=== PATIENT | male | born 1965 | race Caucasian/White ===

== ENCOUNTER → 2021-09-12 | Outpatient (CLI) | payer BC ==
--- NOTE | 2021-09-12 12:58 | Diagnostic Imaging Report ---
Indication: Chronic back pain. Time of Exam: 9:51 AM Frontal and lateral views of lumbar spine were obtained. Curvature and alignment of lumbar spine is normal. Vertebral body heights are well maintained. No acute compression fracture seen. There is degenerative disease at the L1-L2 level with disc space narrowing and marginal spurring. There is a small calcific density overlying the left renal shadow measuring 4 mm, suggestive of a nonobstructing calculus. No definite ureteral calculi are seen. Impression: 1. L1-L2 degenerative disc disease. No acute bony normality detected. 2. Probable 4 mm left renal calculus. Dictated by: Dictated on workstation # [id number]
--- NOTE | 2021-09-12 13:00 | Diagnostic Imaging Report ---
Indication: Chronic back pain. Time of Exam: 9:52 AM Sacrococcygeal alignment is normal. No fractures are seen. Sacral arcuate lines are intact. SI joints non-widened. Impression: No acute abnormality is detected. Dictated by: Dictated on workstation # [id number]
== END ==
LOC: RAD 09:21
PROVIDERS: ATTEND Internal Medicine
DX: M51.36 Other intervertebral disc degeneration, lumbar region (principal)
CPT/HCPCS: 72100; 72220